=== PATIENT | male | born 1985 | race Caucasian/White ===

== ENCOUNTER 2018-09-27 17:28 | Observation (INO) ==
[2018-09-27] MEDS ORDERED: 0.9 % Sodium Chloride 1,000 ML IVC ONE ×2 (18:34→21:34)
--- NOTE | 2018-09-27 18:36 | Emergency Department Note ---
Disposition Clinical Impression: Tachycardia, Flank pain, Lower extremity weakness, Obstructive uropathy, Dehydration, Kidney stone on right side, Hematuria Disposition: Admitted As Inpatient Referrals: Tom,Susan Ortiz CNP [Primary Care Provider] - Forms: ED Satisfaction Letter, Work/School Release Time of Disposition: 21:52 General Adult HPI - General Chief complaint: ED Abdominal Pain Stated complaint: RUQ Pain Time Seen by Provider: 09/27/18 18:33 Source: patient Limitations: no limitations - History of Present Illness HPI Narrative: 33-year-old male comes in with mother with concerns for right flank and abdominal pain. He has a known history of kidney stones. He has been evaluated outpatient with x-rays which were reportedly negative. He had some blood in his urine so his primary care provider put him on an antibiotic. The patient describes persistent flank and right-sided abdominal pain in the upper aspect. There is no history of trauma or rash. No vomiting or diarrhea. No chest pain or shortness of breath. He has a known history of kidney stones he has been voiding normally. 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 There is no history of cough runny nose ear pain sore throat or headache. No trouble moving the upper extremities no confusion or seizures. The patient has had persistent right flank and abdominal pain with recent hematuria and antibiotic therapy per their history. He has no history of recent abdominal surgery no history of gallbladder disease. Pain Scale: 10 - Related Data Home Medications Medication Instructions Recorded Confirmed Lisinopril [Zestril] 10 mg PO DAILY 09/27/18 09/27/18 Allergies Allergy/AdvReac Type Severity Reaction Status Date / Time No Known Allergies Allergy Verified 09/27/18 17:30 All systems ED: reviewed and negative except as stated. Past Medical History - Past Medical History Medical history: Reports: other Psychiatric history: Reports: no psych history - Social History Smoking Status: Never smoker Smokeless Tobacco Status: No Alcohol use: Reports: none Drug use: Reports: none Physical Exam - General Limitations: no limitations General appearance: alert, in no apparent distress - Head Head exam: atraumatic, normocephalic, normal inspection - Eye Eye exam: Present: normal appearance, PERRL, EOMI - ENT ENT exam: normal exam, normal oropharynx, mucous membranes moist, TM's normal bilaterally, normal external ear exam - Neck Neck exam: Present: normal inspection, full ROM, trachea midline - Chest Chest inspection: Present: symmetric chest wall rise. Absent: tenderness - Respiratory Respiratory exam: Present: normal lung sounds bilaterally. Absent: respiratory distress, prolonged expiratory phase - Cardiovascular Cardiovascular exam: Present: normal rhythm, tachycardia - Abdominal Exam Abdominal exam: Present: soft, Non-Tender, normal bowel sounds. Absent: tender ness, distention, guarding, rebound, rigidity, trauma, Osborne's sign, Rovsing's sign, tenderness at McBurney's Point - Extremities Exam Extremities exam: Present: full ROM, other (Flaccid lower extremities, no evidence of trauma, no cyanosis or edema.). Absent: tenderness, pedal edema - Expanded Lower Extremity Exam Neurovascular/Tendon exam: Present: normal capillary refill. Absent: extremity cold to touch, pallor - Back Exam Back exam: Present: normal inspection, full ROM. Absent: CVA tenderness (R), CVA tenderness (L), vertebral tenderness - Neurological Exam Neurological exam: Present: alert, oriented X3, CN II-XII intact, other (Upper extremities show good muscle strength and sensation. Lower extremities flaccid consistent with stated history of ataxia chronic lower extremity weakness.) - Psychiatric Psychiatric exam: Present: normal affect, normal mood - Skin Skin exam: Present: warm, dry, intact, normal color Course Vital Signs Temperature 99.7 F H 09/27/18 17:30 Pulse Rate 140 09/27/18 17:30 Respiratory Rate 16 09/27/18 17:30 Blood Pressure 128/74 09/27/18 17:30 O2 Sat by Pulse Oximetry 93 09/27/18 17:30 Temperature 98.8 F 09/27/18 20:22 Pulse Rate 105 09/27/18 21:03 Respiratory Rate 15 09/27/18 21:03 Blood Pressure 141/87 09/27/18 21:03 O2 Sat by Pulse Oximetry 98 09/27/18 21:03 Oxygen Delivery Oxygen Delivery Room Air Medical Decision Making - [facility] Narrative Medical decision making narrative: The patient has been evaluated and treated for hematuria outpatient and has had persistent right flank pain for one week. He has been on outpatient antibiotics and had decreased by mouth intake. In the emergency department the patient's initial heart rate was in the 140s. He has an elevated white count and an element of hematuria with an associated 5-6 mm kidney stone on the right/obstructive uropathy with renal colic. IV fluids were given, morphine and Zofran were ordered. Blood cultures were sent. Rocephin given IV. Ketones noted in the urine as well. The patient had a low-grade temp at 99.7, after fluids and pain medications his heart rate went down into the 100 teens range. He has been persistently uncomfortable. Based on the patient's persistent flank pain, obstructive uropathy, abnormal vital signs, elevated white count, and abnormal urinalysis with findings suggestive of dehydration, I consulted with the urologist on-call Dr. Payton who recommends hospital admission via the hospital service with urology consult. The patient and mother are agreeable. I consulted with the hospitalist on-call who has excepted the patient to their care. The patient is currently stable pending admission. He may meet sepsis criteria however his lactic acid level is negative and his blood pressure has been stable blood cultures have been sent. - Lab Data Lab results reviewed: Yes I reviewed the patient's lab results. Result diagrams: 09/27/18 17:53 09/27/18 17:53 Lab Results 09/27/18 09/27/18 09/27/18 Range/Units 17:53 17:53 17:53 WBC 12.8 H (4.3-11.1) K/mcL RBC 5.46 (4.19-5.50) M/mcL Hgb 16.8 (12.9-16.9) g/dL Hct 49.6 (37.5-50.1) % MCV 90.8 (83.0-100.0) fL MCH 30.8 (28.0-33.3) pg MCHC 33.9 (31.6-35.5) g/dL RDW 12.5 (11.5-14.5) % Plt Count 350 (140-400) K/mcL MPV 9.1 L (9.4-12.4) fL Immature Gran % 0.5 (0-4) % Seg Neutrophils % 78.5 % Lymphocytes % 11.4 % Monocytes % 9.2 % Eosinophils % 0.2 % Basophils % 0.2 % Neutrophils # 10.0 H (1.6-8.9) K/mcL Lymphocytes # 1.5 (0.6-4.6) K/mcL Monocytes # 1.2 (0.0-1.3) K/mcL Eosinophils # 0.0 (0.0-0.6) K/mcL Basophils # 0.0 (0.0-0.2) K/mcL Sodium 136 (136-145) mEq/L Potassium 4.0 (3.5-5.1) mEq/L Chloride 100 (98-107) mEq/L Carbon Dioxide 24 (23-29) mEq/L BUN 18 (6-20) mg/dL Creatinine 1.29 (0.70-1.30) mg/dL Est GFR ( Amer) > 60 (> 60) Est GFR (Non-Af Amer) > 60 (> 60) BUN/Creatinine Ratio 14 (6-26) Glucose 129 H (70-105) mg/dL Calculated Osmolality 286 (280-300) Lactic Acid (0.5-2.2) mmol/L Calcium 9.8 (8.6-10.3) mg/dL Total Bilirubin 0.8 (0.3-1.0) mg/dL Direct Bilirubin 0.1 (0.0-0.2) mg/dL Indirect Bilirubin 0.7 (0.0-1.2) mg/dL AST 26 (13-39) Units/L ALT 44 (7-52) Units/L Alkaline Phosphatase 65 (34-104) Units/L Troponin I (< 0.04) ng/mL C-Reactive Protein (Less than 10) mg/L Serum Total Protein 7.7 (6.4-8.9) g/dL Albumin 4.3 (3.5-5.7) g/dL Globulin 3.4 (2.4-3.5) g/dL Albumin/Globulin Ratio 1.3 (1.1-2.2) Lipase 20 (11-82) Units/L Urine Color (Yellow) Urine Clarity (Clear) Urine pH (5.0-8.0) pH Units Ur Specific [place] (1.010-1.025) Urine Protein (Neg-Trace) mg/dL Urine Glucose (UA) (Normal) mg/dL Urine Ketones (Negative) mg/dL Urine Blood (Negative) Urine Nitrite (Negative) Urine Bilirubin (Negative) Urine Urobilinogen (Normal) mg/dL Ur Leukocyte Esterase (Negative) Urine Microscopic RBC (0-3) per hpf Urine Microscopic WBC (0-3) per hpf Ur Squamous Epith Cells (None-Few) per lpf Urine Bacteria (None-Few) per hpf Hyaline Casts (None-Few) per lpf Ur Culture Indicated? (NO) Urine Opiates Screen (Hnlxey=944) ng/mL Ur Buprenorphine Scrn (Cutoff=5) ng/mL Acetaminophen (10-20) mcg/mL Ur Barbiturates Screen (Gieahb=419) ng/mL Ur Phencyclidine Scrn (Cutoff=25) ng/mL Ur Amphetamines Screen (Wtfyno=0705) ng/mL U Benzodiazepines Scrn (Xeanqk=827) ng/mL Urine Cocaine Screen (Cutoff= 300) ng/mL U Marijuana (THC) Screen (Cutoff = 50) ng/mL Ur Drug Screen Interp Hepatitis A IgM Ab Nonreactive (Nonreactive) Hep Bs Antigen Nonreactive (Nonreactive) Hep B Core IgM Ab Nonreactive (Nonreactive) Hepatitis C Ab Screen Nonreactive (Nonreactive) 09/27/18 09/27/18 09/27/18 Range/Units 19:04 19:04 19:04 WBC (4.3-11.1) K/mcL RBC (4.19-5.50) M/mcL Hgb (12.9-16.9) g/dL Hct (37.5-50.1) % MCV (83.0-100.0) fL MCH (28.0-33.3) pg MCHC (31.6-35.5) g/dL RDW (11.5-14.5) % Plt Count (140-400) K/mcL MPV (9.4-12.4) fL Immature Gran % (0-4) % Seg Neutrophils % % Lymphocytes % % Monocytes % % Eosinophils % % Basophils % % Neutrophils # (1.6-8.9) K/mcL Lymphocytes # (0.6-4.6) K/mcL Monocytes # (0.0-1.3) K/mcL Eosinophils # (0.0-0.6) K/mcL Basophils # (0.0-0.2) K/mcL Sodium (136-145) mEq/L Potassium (3.5-5.1) mEq/L Chloride (98-107) mEq/L Carbon Dioxide (23-29) mEq/L BUN (6-20) mg/dL Creatinine (0.70-1.30) mg/dL Est GFR ( Amer) (> 60) Est GFR (Non-Af Amer) (> 60) BUN/Creatinine Ratio (6-26) Glucose (70-105) mg/dL Calculated Osmolality (280-300) Lactic Acid 1.3 (0.5-2.2) mmol/L Calcium (8.6-10.3) mg/dL Total Bilirubin (0.3-1.0) mg/dL Direct Bilirubin (0.0-0.2) mg/dL Indirect Bilirubin (0.0-1.2) mg/dL AST (13-39) Units/L ALT (7-52) Units/L Alkaline Phosphatase (34-104) Units/L Troponin I < 0.03 (< 0.04) ng/mL C-Reactive Protein 41 H (Less than 10) mg/L Serum Total Protein (6.4-8.9) g/dL Albumin (3.5-5.7) g/dL Globulin (2.4-3.5) g/dL Albumin/Globulin Ratio (1.1-2.2) Lipase (11-82) Units/L Urine Color (Yellow) Urine Clarity (Clear) Urine pH (5.0-8.0) pH Units Ur Specific [place] (1.010-1.025) Urine Protein (Neg-Trace) mg/dL Urine Glucose (UA) (Normal) mg/dL Urine Ketones (Negative) mg/dL Urine Blood (Negative) Urine Nitrite (Negative) Urine Bilirubin (Negative) Urine Urobilinogen (Normal) mg/dL Ur Leukocyte Esterase (Negative) Urine Microscopic RBC (0-3) per hpf Urine Microscopic WBC (0-3) per hpf Ur Squamous Epith Cells (None-Few) per lpf Urine Bacteria (None-Few) per hpf Hyaline Casts (None-Few) per lpf Ur Culture Indicated? (NO) Urine Opiates Screen (Msddjj=453) ng/mL Ur Buprenorphine Scrn (Cutoff=5) ng/mL Acetaminophen < 10 L (10-20) mcg/mL Ur Barbiturates Screen (Qqimrb=440) ng/mL Ur Phencyclidine Scrn (Cutoff=25) ng/mL Ur Amphetamines Screen (Iexwgh=2652) ng/mL U Benzodiazepines Scrn (Oxkpls=887) ng/mL Urine Cocaine Screen (Cutoff= 300) ng/mL U Marijuana (THC) Screen (Cutoff = 50) ng/mL Ur Drug Screen Interp Hepatitis A IgM Ab (Nonreactive) Hep Bs Antigen (Nonreactive) Hep B Core IgM Ab (Nonreactive) Hepatitis C Ab Screen (Nonreactive) 09/27/18 09/27/18 Range/Units 19:15 19:15 WBC (4.3-11.1) K/mcL RBC (4.19-5.50) M/mcL Hgb (12.9-16.9) g/dL Hct (37.5-50.1) % MCV (83.0-100.0) fL MCH (28.0-33.3) pg MCHC (31.6-35.5) g/dL RDW (11.5-14.5) % Plt Count (140-400) K/mcL MPV (9.4-12.4) fL Immature Gran % (0-4) % Seg Neutrophils % % Lymphocytes % % Monocytes % % Eosinophils % % Basophils % % Neutrophils # (1.6-8.9) K/mcL Lymphocytes # (0.6-4.6) K/mcL Monocytes # (0.0-1.3) K/mcL Eosinophils # (0.0-0.6) K/mcL Basophils # (0.0-0.2) K/mcL Sodium (136-145) mEq/L Potassium (3.5-5.1) mEq/L Chloride (98-107) mEq/L Carbon Dioxide (23-29) mEq/L BUN (6-20) mg/dL Creatinine (0.70-1.30) mg/dL Est GFR ( Amer) (> 60) Est GFR (Non-Af Amer) (> 60) BUN/Creatinine Ratio (6-26) Glucose (70-105) mg/dL Calculated Osmolality (280-300) Lactic Acid (0.5-2.2) mmol/L Calcium (8.6-10.3) mg/dL Total Bilirubin (0.3-1.0) mg/dL Direct Bilirubin (0.0-0.2) mg/dL Indirect Bilirubin (0.0-1.2) mg/dL AST (13-39) Units/L ALT (7-52) Units/L Alkaline Phosphatase (34-104) Units/L Troponin I (< 0.04) ng/mL C-Reactive Protein (Less than 10) mg/L Serum Total Protein (6.4-8.9) g/dL Albumin (3.5-5.7) g/dL Globulin (2.4-3.5) g/dL Albumin/Globulin Ratio (1.1-2.2) Lipase (11-82) Units/L Urine Color Yellow (Yellow) Urine Clarity Clear (Clear) Urine pH 5.5 (5.0-8.0) pH Units Ur Specific [place] 1.024 (1.010-1.025) Urine Protein Trace (Neg-Trace) mg/dL Urine Glucose (UA) Normal (Normal) mg/dL Urine Ketones 40 H (Negative) mg/dL Urine Blood Large H (Negative) Urine Nitrite Negative (Negative) Urine Bilirubin Negative (Negative) Urine Urobilinogen Normal (Normal) mg/dL Ur Leukocyte Esterase Trace H (Negative) Urine Microscopic RBC 5-15 H (0-3) per hpf Urine Microscopic WBC 3-5 H (0-3) per hpf Ur Squamous Epith Cells Many H (None-Few) per lpf Urine Bacteria Few (None-Few) per hpf Hyaline Casts None Seen (None-Few) per lpf Ur Culture Indicated? YES A (NO) Urine Opiates Screen Negative (Segirn=886) ng/mL Ur Buprenorphine Scrn Negative (Cutoff=5) ng/mL Acetaminophen (10-20) mcg/mL Ur Barbiturates Screen Negative (Qdpbia=296) ng/mL Ur Phencyclidine Scrn Negative (Cutoff=25) ng/mL Ur Amphetamines Screen Negative (Kktkyc=3652) ng/mL U Benzodiazepines Scrn Negative (Dkjmqu=648) ng/mL Urine Cocaine Screen Negative (Cutoff= 300) ng/mL U Marijuana (THC) Screen Negative (Cutoff = 50) ng/mL Ur Drug Screen Interp See Below Hepatitis A IgM Ab (Nonreactive) Hep Bs Antigen (Nonreactive) Hep B Core IgM Ab (Nonreactive) Hepatitis C Ab Screen (Nonreactive) - Radiology Data Radiology results reviewed: Yes I reviewed the patient's radiology results.
[2018-09-27 18:37] LABS: Basophils % 0.2 %; Eosinophils % 0.2 %; Hematocrit 49.6 % (37.5-50.1); Hemoglobin 16.8 g/dL (12.9-16.9); Immature Granulocytes % 0.5 % (0-4); Lymphocytes # 1.5 K/mcL (0.6-4.6); Lymphocytes % 11.4 %; Mean Corpuscular HGB Conc 33.9 g/dL (31.6-35.5); Mean Corpuscular Hemoglobin 30.8 pg (28.0-33.3); Mean Corpuscular Volume 90.8 fL (83.0-100.0); Mean Platelet Volume 9.1 fL (9.4-12.4); Monocytes # 1.2 K/mcL (0.0-1.3); Monocytes % 9.2 %; Platelet Count 350 K/mcL (140-400); Red Blood Count 5.46 M/mcL (4.19-5.50); Red Cell Distribution Width 12.5 % (11.5-14.5); Segmented Neutrophils % 78.5 %; White Blood Count 12.8 K/mcL (4.3-11.1)
[2018-09-27 18:49] LABS: Alanine Aminotransferase 44 Units/L (7-52); Albumin 4.3 g/dL (3.5-5.7); Albumin/Globulin Ratio 1.3 (1.1-2.2); Alkaline Phosphatase 65 Units/L (34-104); Aspartate Amino Transferase 26 Units/L (13-39); BUN/Creatinine Ratio 14 (6-26); Bilirubin,Direct 0.1 mg/dL (0.0-0.2); Bilirubin,Indirect 0.7 mg/dL (0.0-1.2); Bilirubin,Total 0.8 mg/dL (0.3-1.0); Blood Urea Nitrogen 18 mg/dL (6-20); Calcium 9.8 mg/dL (8.6-10.3); Carbon Dioxide 24 mEq/L (23-29); Chloride 100 mEq/L (98-107); Globulin 3.4 g/dL (2.4-3.5); Glucose 129 mg/dL (70-105); Lipase 20 Units/L (11-82); Osmolality,Calculated 286 (280-300); Sodium 136 mEq/L (136-145); Total Protein 7.7 g/dL (6.4-8.9); eGFR For African Americans > 60 (> 60); eGFR For Non-African Americans > 60 (> 60)
[2018-09-27 19:39] LABS: Bilirubin,Urine Negative (Negative); Blood,Urine Large (Negative); Clarity,Urine Clear (Clear); Color,Urine Yellow (Yellow); Glucose,Urine (UA) Normal (Normal); Ketones,Urine 40 mg/dL (Negative); Leukocyte Esterase,Urine Trace (Negative); Nitrite,Urine Negative (Negative); PH,Urine 5.5 pH Units (5.0-8.0); Protein,Urine Trace mg/dL (Neg-Trace); Specific Gravity,Urine 1.024 (1.010-1.025); Urobilinogen,Urine Normal (Normal)
[2018-09-27 19:43] LABS: Acetaminophen < 10 mcg/mL (10-20); Troponin I < 0.03 ng/mL (< 0.04)
[2018-09-27 19:44] LABS: Hyaline Casts,Urine None Seen per lpf (None-Few); Squamous Epithelial Cell,Urine Many per lpf (None-Few)
[2018-09-27 19:45] LABS: Amphetamine Screen,Urine Negative ng/mL (Cutoff=1000); Barbiturate Screen,Urine Negative ng/mL (Cutoff=200); Benzodiazepines Screen,Urine Negative ng/mL (Cutoff=200); Cannabinoid Screen,Urine Negative ng/mL (Cutoff = 50); Cocaine Screen,Urine Negative ng/mL (Cutoff= 300); Opiate Screen,Urine Negative ng/mL (Cutoff=300); Phencyclidine Screen,Urine Negative ng/mL (Cutoff=25)
[2018-09-27] MEDS ORDERED: Morphine Sulfate 2 MG/ML SYRINGE IVP ONE (19:46)
[2018-09-27] MEDS ORDERED: Isovue-370 500 ML BOTTLE IVP ONE (19:46)
[2018-09-27] MEDS ORDERED: Ondansetron 4 MG/2 ML VIAL IVP ONE (19:47)
[2018-09-27 19:52] LABS: Bacteria,Urine Few per hpf (None-Few)
[2018-09-27 20:43] LABS: Hepatitis B Surface Antigen Nonreactive (Nonreactive)
[2018-09-27 21:12] LABS: Hepatitis B Core IgM Nonreactive (Nonreactive); Hepatitis C Virus Antibody Nonreactive (Nonreactive)
[2018-09-27 21:14] LABS: Hepatitis A Antibody IgM Nonreactive (Nonreactive)
[2018-09-27] MEDS ORDERED: cefTRIAXone 1,000 MG in Water for inj. (sterile) 10 ML IVP ONE (21:33)
[2018-09-27] MEDS ORDERED: *HR* HYDROmorphone (PF) 1 MG/ML SYRINGE IVP ONE (22:24)
[2018-09-28] MEDS ORDERED: Naloxone 0.4 MG/ML INJ IVP PRN (00:22)
[2018-09-28] MEDS ORDERED: Ketorolac 30 MG/ML VIAL IVP PRN (00:22)
[2018-09-28] MEDS ORDERED: Ondansetron 4 MG/2 ML VIAL IVP PRN (00:22)
--- NOTE | 2018-09-28 00:29 | Internal Med History&Physical ---
Date of Encounter: 09/28/18 Time of Encounter: 00:05 Internal Medicine - H&P: HPI Chief complaint: Kidney stone Admitted From: Emergency Dept Plans for Post Hospital Care: Home History of present illness: Mr. Smiley is a 33 year old male Patient presented to the emergency department with right flank pain. He has a history of kidney stones, and describes the pain as burning. He has had similar pain like this in the past, with other stones his mother is at bedside and states that he passed a kidney stone about 2 years ago.He had been seen by his primary care provider, antibiotic. The pain did not improve and he came to the emergency department for further evaluation. Emergency department patient's initial vital signs: Temperature 99.7 heart rate 140, respiratory rate 16, blood pressure 128/74, O2 saturation 93%. CBC notable for white count of 12.8 BMP notable for a glucose of 129. C-reactive protein elevated at 41 Lactic acid 1.3 Initial troponin undetectable Urinalysis: Large blood, urine ketones, trace protein, trace leukocyte esterase, 3-5 white blood cells, culture indicated. Urine tox screen negative Hepatitis panel nonreactive Emergency department patient received 2 L of IV fluids, and on-call urology was notified. Patient will see the patient in the morning. Blood cultures were drawn and patient was started on ceftriaxone as well. Upon my evaluation, patient is resting comfortably in the hospital bed in no acute distress. He denies chest pain, abdominal pain, nausea, vomiting, diarrhea and constipation. He has a history of kidney stones, hypertension and has mild developmental delay. He has lower extremity weakness, and uses a wheelchair for mobility. His mother states that there is a strong family history of diabetes in the family. He is a full code. 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 - Constitutional Vitals: Temp Pulse Resp BP Pulse Ox 98.4 F 102 15 122/78 96 09/27/18 23:59 09/27/18 23:59 09/27/18 23:59 09/27/18 23:59 09/27/18 23:59 General appearance: Present: cooperative, A&O X 3, pleasant, no acute distress, answers questions appropriately Exam: - - Head Head exam: Present: normal inspection - Eye Eye exam: Present: EOMI, normal appearance - Respiratory Respiratory exam: Present: CTAB. Absent: rales, respiratory distress, rhonchi, wheezes - Cardiovascular Cardiovascular exam: Present: RRR. Absent: diastolic murmur, systolic murmur - GI/Abdominal GI/Abdominal exam: Present: normal bowel sounds, soft. Absent: tenderness Additional comments: No right flank pain with palpation - Extremities Exam Extremities exam: Present: warm, radial pulses palpable and symmetrical. Absent: calf tenderness, pedal edema, tenderness Additional comments: Unable to move lower extremities - Back Exam Back exam: Absent: CVA tenderness (L), CVA tenderness (R) - Neurological Exam Neurological exam: Present: strengths equal and symetr throughout. Absent: facial droop, speech deficit - Skin Skin exam: Present: dry, normal color, warm Internal Med - H&P Results - Labs CBC & Chem 7: 09/27/18 17:53 09/27/18 17:53 Labs: Short CBC 09/27/18 Range/Units 17:53 WBC 12.8 H (4.3-11.1) K/mcL Hgb 16.8 (12.9-16.9) g/dL Hct 49.6 (37.5-50.1) % Plt Count 350 (140-400) K/mcL Neutrophils # 10.0 H (1.6-8.9) K/mcL BMP 09/27/18 17:53 Sodium 136 Potassium 4.0 Chloride 100 Carbon Dioxide 24 BUN 18 Creatinine 1.29 Glucose 129 H Calcium 9.8 Cardiac Enzymes 09/27/18 Range/Units 19:04 Troponin I < 0.03 (< 0.04) ng/mL Liver Function 09/27/18 Range/Units 17:53 Total Bilirubin 0.8 (0.3-1.0) mg/dL Direct Bilirubin 0.1 (0.0-0.2) mg/dL AST 26 (13-39) Units/L ALT 44 (7-52) Units/L Alkaline Phosphatase 65 (34-104) Units/L Albumin 4.3 (3.5-5.7) g/dL Urine 09/27/18 Range/Units 19:15 Urine Color Yellow (Yellow) Urine Clarity Clear (Clear) Urine pH 5.5 (5.0-8.0) pH Units Ur Specific [place] 1.024 (1.010-1.025) Urine Protein Trace (Neg-Trace) mg/dL Urine Glucose (UA) Normal (Normal) mg/dL - Impressions ITS Impressions Chest X-Ray 09/27/18 19:45 IMPRESSION: Expiratory film demonstrating no definite infiltrate D/ / Anthony Han MD / Anthony Han MD Interpreting Provider: Anthony Han MD Abdomen/Pelvis CT 09/27/18 19:46 IMPRESSION: Right hydronephrosis with obstructing 5-6 mm stone at or just near the right ureteropelvic junction. Fatty infiltration of the liver D/ / Jayna Perera Cha, MD / Jayna Perera Cha, MD Interpreting Provider: Jayna Perera Cha, MD - Assessment and Plan (1) Kidney stone on right side Current Visit: Yes Status: Acute Assessment and plan: Patient has a 5-6 mm obstructing stone just near the right ureteropelvic javier ction. Correlates with his right flank pain. Urology notified will see the patient in the morning. He was given ceftriaxone for possible infection as well. Blood cultures were drawn. Follow-up urology recommendations Continue pain management as needed Nothing by mouth after midnight Continue IV fluid hydration Follow-up blood cultures Continue IV ceftriaxone (2) Flank pain Current Visit: Yes Status: Acute Assessment and plan: Now resolved after pain medicine. Pain management as needed (3) Hyperglycemia Current Visit: Yes Status: Acute Assessment and plan: Patient's mother denies that the patient has history of diabetes. He has had elevated blood sugars in the past. A1c in the morning (4) DVT prophylaxis Current Visit: Yes Status: Acute Assessment and plan: SCDs - Time Spent With Patient Total time spent is greater than 50% in coordination of care (as documented) at patient's floor/unit and/or counseling patient:
[2018-09-28] MEDS: 0.9 % Sodium Chloride 1,000 ML IVC SCH ×2 (01:04→09:23)
[2018-09-28 06:31] LABS: Hematocrit 42.5 % (37.5-50.1); Mean Corpuscular HGB Conc 33.2 g/dL (31.6-35.5); Mean Corpuscular Hemoglobin 30.3 pg (28.0-33.3); Mean Corpuscular Volume 91.2 fL (83.0-100.0); Mean Platelet Volume 9.1 fL (9.4-12.4); Platelet Count 287 K/mcL (140-400); Red Blood Count 4.66 M/mcL (4.19-5.50); Red Cell Distribution Width 12.9 % (11.5-14.5); White Blood Count 8.7 K/mcL (4.3-11.1)
[2018-09-28 06:36] LABS: INR 1.3; Prothrombin Time 14.7 Seconds (9.4-12.1)
[2018-09-28 06:47] LABS: Hemoglobin 14.1 g/dL (12.9-16.9)
[2018-09-28 06:54] LABS: BUN/Creatinine Ratio 13 (6-26); Blood Urea Nitrogen 13 mg/dL (6-20); Calcium 8.7 mg/dL (8.6-10.3); Carbon Dioxide 24 mEq/L (23-29); Chloride 107 mEq/L (98-107); Glucose 110 mg/dL (70-105); Osmolality,Calculated 293 (280-300); Potassium 3.8 mEq/L (3.5-5.1); Sodium 141 mEq/L (136-145); eGFR For African Americans > 60 (> 60); eGFR For Non-African Americans > 60 (> 60)
[2018-09-28 07:16] LABS: Estimated Average Glucose 117 mg/dl
--- NOTE | 2018-09-28 08:34 | Electrocardiograph Report ---
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
--- NOTE | 2018-09-28 08:51 | Urology - Consult Note ---
<Sunita Singh N - Last Filed: 09/28/18 08:48> Date of Encounter: 09/28/18 Time of Encounter: 08:00 - Assessment and Plan (1) Ureteral stone with hydronephrosis Current Visit: Yes Status: Acute Assessment and plan: Patient is a 33-year-old male who presents with a right proximal ureteral stone and hydronephrosis. I discussed surgical risks and benefits with patient and his mother who both verbalized understanding. Patient's mother signed consent, and he is prepared undergo a cystoscopy and right ureteral stent placement later this afternoon with Dr. Payton. Patient will remain nothing by mouth. (2) Urinary tract infection Current Visit: Yes Status: Acute Assessment and plan: Patient is a 33-year-old male who presents with a presumed urinary tract infection secondary to obstructive uropathy. Patient with a documented low- grade fever and tachycardia. Patient is receiving IV Rocephin. Blood and urine cultures are pending. Qualifiers: Urinary tract infection type: site unspecified Hematuria presence: with hematuria Qualified Code(s): N39.0 - Urinary tract infection, site not specified; R31.9 - Hematuria, unspecified Urology CN:HPI Consult date: 09/28/18 Reason for consult Urology: Hydronephrosis (right ureteral stone, UTI) Requesting physician: Rayshawn Sexton History of present illness: Patient is a 33-year-old male who presents with a 5 mm right proximal ureteral stone and hydronephrosis. Patient has a past medical history significant for nephrolithiasis, developmental delay and unspecified immunodeficiency syndrome. Patient is accompanied by his mother at bedside who is a reliable historian. Patient presented to the emergency department with a one-week history of right flank pain, nausea and upper abdominal pain. Patient was initially evaluated by his primary care provider who ordered a KUB and initiated antibiotics. Patient's mother reports KUB was negative. Patient underwent a CT of the abdomen and pelvis at the emergency department revealing a 5-6 mm right ureter opelvic junction calculus and hydronephrosis. On initial evaluation, the patient was found to be tachycardic with a heart rate in the 140s and temperature to 99.7. Patient was admitted for further urologic intervention. Patient has a long-standing history of nephrolithiasis and has undergone ESWL in the past. Patient has a strong family history of renal stones through his mother, sister and maternal grandmother. Currently, patient is sitting upright in bed in no apparent distress and he denies any chest pain, dyspnea, nausea, vomiting, fever,or chills. 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 Psychiatric history: no psych history - Past Surgical History Additional surgical history: metal bars in hips - Social History Smoking Status: Never smoker Smokeless Tobacco Status: No Alcohol use: none Drug use: none - Family History Mother Sister Grandmother Hx Family Genitourinary Disorders: Yes (renal stones ) Medications and Allergies Lisinopril [Zestril] 10 mg PO DAILY 09/27/18 [History] Allergy/AdvReac Type Severity Reaction Status Date / Time No Known Allergies Allergy Verified 09/27/18 17:30 Review of Systems - Constitutional fatigue, no chills, no fever(s) - EENT Nose, mouth and throat: no dizziness, no headache(s) - Cardiovascular no chest pain, no diaphoresis, no dyspnea - Respiratory no cough, no dyspnea - Gastrointestinal abdominal pain, nausea, no vomiting - Genitourinary flank pain, hematuria, no difficulty urinating, no dysuria, no urinary frequency, no urinary hesitancy, no urinary incontinence, no urinary urgency - Musculoskeletal back pain, no muscle weakness - Integumentary no erythema, no rash - Neurological no confusion, no syncope - Psychiatric no anxiety, no confusion - Hematologic/Lymphatic no easy bleeding, no easy bruising - Allergic/Immunologic no throat swelling, no wheezing Exam Initial Vital Signs Temp Pulse Resp BP Pulse Ox 99.7 F H 140 16 128/74 93 09/27/18 17:30 09/27/18 17:30 09/27/18 17:30 09/27/18 17:30 09/27/18 17:30 - General physical appearance Present: no distress, no pain - Eyes Present: PERRL, normal ocular movement - ENT Present: normal nares, no hearing loss, no congestion - Neck Present: no masses, trachea midline, no lymphadenopathy - Respiratory Present: normal respiratory effort - Cardiovascular Cardiovascular exam IM: tachycardia - Abdomen Abdomen: Present: soft, non tender. Absent: distended - Genitourinary other (no cvat) - Integumentary Present: no rash, no abnormal pigmentation - Neurologic Present: normal coordination - Musculoskeletal Present: other (bilateral contracted lower extremities ) Urology Results - Labs 09/28/18 05:39 09/28/18 05:39 Abnormal lab results WBC 12.8 K/mcL (4.3-11.1) H 09/27/18 17:53 MPV 9.1 fL (9.4-12.4) L 09/28/18 05:39 Neutrophils # 10.0 K/mcL (1.6-8.9) H 09/27/18 17:53 PT 14.7 Seconds (9.4-12.1) H 09/28/18 05:39 Glucose 110 mg/dL (70-105) H 09/28/18 05:39 Hemoglobin A1c 5.7 % (-5.6) H 09/28/18 05:39 C-Reactive Protein 41 mg/L (Less than 10) H 09/27/18 19:04 Urine Ketones 40 mg/dL (Negative) H 09/27/18 19:15 Urine Blood Large (Negative) H 09/27/18 19:15 Ur Leukocyte Esterase Trace (Negative) H 09/27/18 19:15 Urine Microscopic RBC 5-15 per hpf (0-3) H 09/27/18 19:15 Urine Microscopic WBC 3-5 per hpf (0-3) H 09/27/18 19:15 Ur Squamous Epith Cells Many per lpf (None-Few) H 09/27/18 19:15 Ur Culture Indicated? YES (NO) A 09/27/18 19:15 Acetaminophen < 10 mcg/mL (10-20) L 09/27/18 19:04 Diabetes panel 09/27/18 09/28/18 09/28/18 Range/Units 17:53 05:39 05:39 Sodium 136 141 (136-145) mEq/L Potassium 4.0 3.8 (3.5-5.1) mEq/L Chloride 100 107 (98-107) mEq/L Carbon Dioxide 24 24 (23-29) mEq/L BUN 18 13 (6-20) mg/dL Creatinine 1.29 1.03 (0.70-1.30) mg/dL Glucose 129 H 110 H (70-105) mg/dL Hemoglobin A1c 5.7 H ( - 5.6) % Calcium 9.8 8.7 (8.6-10.3) mg/dL AST 26 (13-39) Units/L ALT 44 (7-52) Units/L Alkaline Phosphatase 65 (34-104) Units/L Albumin 4.3 (3.5-5.7) g/dL Calcium panel 09/27/18 09/28/18 Range/Units 17:53 05:39 Calcium 9.8 8.7 (8.6-10.3) mg/dL Albumin 4.3 (3.5-5.7) g/dL Pituitary panel 09/27/18 09/28/18 Range/Units 17:53 05:39 Sodium 136 141 (136-145) mEq/L Potassium 4.0 3.8 (3.5-5.1) mEq/L Chloride 100 107 (98-107) mEq/L Carbon Dioxide 24 24 (23-29) mEq/L BUN 18 13 (6-20) mg/dL Creatinine 1.29 1.03 (0.70-1.30) mg/dL Glucose 129 H 110 H (70-105) mg/dL Calcium 9.8 8.7 (8.6-10.3) mg/dL Adrenal panel 09/27/18 09/28/18 Range/Units 17:53 05:39 Sodium 136 141 (136-145) mEq/L Potassium 4.0 3.8 (3.5-5.1) mEq/L Chloride 100 107 (98-107) mEq/L Carbon Dioxide 24 24 (23-29) mEq/L BUN 18 13 (6-20) mg/dL Creatinine 1.29 1.03 (0.70-1.30) mg/dL Glucose 129 H 110 H (70-105) mg/dL Calcium 9.8 8.7 (8.6-10.3) mg/dL Total Bilirubin 0.8 (0.3-1.0) mg/dL AST 26 (13-39) Units/L ALT 44 (7-52) Units/L Alkaline Phosphatase 65 (34-104) Units/L Albumin 4.3 (3.5-5.7) g/dL All other labs normal. - Imaging CT scan - abdomen: report reviewed, image reviewed CT scan - pelvis: report reviewed, image reviewed Consult Discharge Plan - Plan Referrals: Demetris Payton MD [Partnered Physician] - Susan Santos CNP [Primary Care Provider] - <Dmeetris Payton - Last Filed: 09/28/18 11:35> Date of Encounter: 09/28/18 Past Med Surg Social Fam HX - Social History Current living situation: With Family (Lives with mother) Exam Initial Vital Signs Temp Pulse Resp BP Pulse Ox 99.7 F H 140 16 128/74 93 09/27/18 17:30 09/27/18 17:30 09/27/18 17:30 09/27/18 17:30 09/27/18 17:30 Urology Results - Labs 09/28/18 05:39 09/28/18 05:39 Abnormal lab results WBC 12.8 K/mcL (4.3-11.1) H 09/27/18 17:53 MPV 9.1 fL (9.4-12.4) L 09/28/18 05:39 Neutrophils # 10.0 K/mcL (1.6-8.9) H 09/27/18 17:53 PT 14.7 Seconds (9.4-12.1) H 09/28/18 05:39 Glucose 110 mg/dL (70-105) H 09/28/18 05:39 Hemoglobin A1c 5.7 % (-5.6) H 09/28/18 05:39 C-Reactive Protein 41 mg/L (Less than 10) H 09/27/18 19:04 Urine Ketones 40 mg/dL (Negative) H 09/27/18 19:15 Urine Blood Large (Negative) H 09/27/18 19:15 Ur Leukocyte Esterase Trace (Negative) H 09/27/18 19:15 Urine Microscopic RBC 5-15 per hpf (0-3) H 09/27/18 19:15 Urine Microscopic WBC 3-5 per hpf (0-3) H 09/27/18 19:15 Ur Squamous Epith Cells Many per lpf (None-Few) H 09/27/18 19:15 Ur Culture Indicated? YES (NO) A 09/27/18 19:15 Acetaminophen < 10 mcg/mL (10-20) L 09/27/18 19:04 Diabetes panel 09/27/18 09/28/18 09/28/18 Range/Units 17:53 05:39 05:39 Sodium 136 141 (136-145) mEq/L Potassium 4.0 3.8 (3.5-5.1) mEq/L Chloride 100 107 (98-107) mEq/L Carbon Dioxide 24 24 (23-29) mEq/L BUN 18 13 (6-20) mg/dL Creatinine 1.29 1.03 (0.70-1.30) mg/dL Glucose 129 H 110 H (70-105) mg/dL Hemoglobin A1c 5.7 H ( - 5.6) % Calcium 9.8 8.7 (8.6-10.3) mg/dL AST 26 (13-39) Units/L ALT 44 (7-52) Units/L Alkaline Phosphatase 65 (34-104) Units/L Albumin 4.3 (3.5-5.7) g/dL Calcium panel 09/27/18 09/28/18 Range/Units 17:53 05:39 Calcium 9.8 8.7 (8.6-10.3) mg/dL Albumin 4.3 (3.5-5.7) g/dL Pituitary panel 09/27/18 09/28/18 Range/Units 17:53 05:39 Sodium 136 141 (136-145) mEq/L Potassium 4.0 3.8 (3.5-5.1) mEq/L Chloride 100 107 (98-107) mEq/L Carbon Dioxide 24 24 (23-29) mEq/L BUN 18 13 (6-20) mg/dL Creatinine 1.29 1.03 (0.70-1.30) mg/dL Glucose 129 H 110 H (70-105) mg/dL Calcium 9.8 8.7 (8.6-10.3) mg/dL Adrenal panel 09/27/18 09/28/18 Range/Units 17:53 05:39 Sodium 136 141 (136-145) mEq/L Potassium 4.0 3.8 (3.5-5.1) mEq/L Chloride 100 107 (98-107) mEq/L Carbon Dioxide 24 24 (23-29) mEq/L BUN 18 13 (6-20) mg/dL Creatinine 1.29 1.03 (0.70-1.30) mg/dL Glucose 129 H 110 H (70-105) mg/dL Calcium 9.8 8.7 (8.6-10.3) mg/dL Total Bilirubin 0.8 (0.3-1.0) mg/dL AST 26 (13-39) Units/L ALT 44 (7-52) Units/L Alkaline Phosphatase 65 (34-104) Units/L Albumin 4.3 (3.5-5.7) g/dL All other labs normal.
[2018-09-28] MEDS ORDERED: cefTRIAXone 1,000 MG in Water for inj. (sterile) 10 ML IVP SCH (09:00)
--- NOTE | 2018-09-28 09:31 | Internal Med Progress Note ---
<Morgan Quezada L - Last Filed: 09/28/18 15:54> Hospitalist Progress Note - Encounter Date of Encounter: 09/28/18 Time of Encounter: 09:29 - Subjective Interval History: Pt seen and examined. Feeling well this morning. Denies any abdominal or flank pain. Pt had already discussed treatment plan with urologist. Will undergo right-sided cystoscopy and ureteral stent placement today. Denies fevers, chills, AVILES, chest pain, SOB, constipation, diarhea, or hematuria. - Exam Vitals: Temp Pulse Resp BP Pulse Ox 98.6 F 103 16 109/74 96 09/28/18 06:18 09/28/18 06:18 09/28/18 06:18 09/28/18 06:18 09/28/18 06:18 Exam: Gen: Vitals noted. No acute distress. Eyes: anicteric sclerae, moist conjunctivae; no lid-lag; Pupils equal and reactive to light HENT: Atraumatic, normocephalic; oropharynx clear with moist mucous membranes and no mucosal ulcerations Neck: Trachea midline; supple, no thyromegaly or lymphadenopathy Cardiac: RRR, no murmurs, rubs or gallops, S1/S2 Pulmonary: CTA bilaterally, no wheezes, rales or rhonchi, equal chest expansion Abdomen: soft, nontender, no rigidity or guarding. No masses or hepatos plenomegaly MSK: ROM intact, no joint swelling noted Extremities: no BLE edema, nontender calf, no cyanosis or clubbing Skin: Normal temperature, turgor and texture; no rash, ulcers or subcutaneous nodules Neuro: Unable to move legs, fasciculations noted in R foot Psych: Appropriate mood and behavior. A&Ox3, moderate mental retardation - Assessment and Plan (1) Ureteral stone with hydronephrosis Current Visit: Yes Status: Acute Assessment and Plan: R proximal Ureteral stone, with hydronephrosis -CT abdomen: 5-6 mm stone in R ureteral pelvic junction -Hx of nephrolithiasis -Urology consulted Plan: -Cystoscopy and right ureteral stent placement today -NPO -Toradol 30 IV q6 for pain (2) Urinary tract infection Current Visit: Yes Status: Acute Assessment and Plan: Secondary to obstructive uropathy -Low grade fever and tachycardia on admission -Blood and urine cultures pending -UA: trace blood, Leuk esterase, WBCs Plan: -IV rocephin day 1 of 7 (3) Kidney stone on right side Current Visit: Yes Status: Acute Assessment and Plan: Visualized on CT Will undergo cystoscopy, basket removal, and stent placement today (4) Hyperglycemia Current Visit: Yes Status: Acute Assessment and Plan: Patient's mother denies that the patient has history of diabetes. He has had elevated blood sugars in the past. A1c: 5.7 Plan: cont to monitor glucose with BMP in the morning DVT Prophylaxis: SCDs - Time Spent with Patient Total time spent is greater than 50% in coordination of care (as documented) at patient's floor/unit and/or counseling patient: Internal Medicine: Result - Labs CBC & Chem 7: 09/28/18 05:39 09/28/18 05:39 Labs: Short CBC 09/27/18 09/28/18 Range/Units 17:53 05:39 WBC 12.8 H 8.7 (4.3-11.1) K/mcL Hgb 16.8 14.1 D (12.9-16.9) g/dL Hct 49.6 42.5 (37.5-50.1) % Plt Count 350 287 (140-400) K/mcL Neutrophils # 10.0 H (1.6-8.9) K/mcL BMP 09/27/18 09/28/18 17:53 05:39 Sodium 136 141 Potassium 4.0 3.8 Chloride 100 107 Carbon Dioxide 24 24 BUN 18 13 Creatinine 1.29 1.03 Glucose 129 H 110 H Calcium 9.8 8.7 Cardiac Enzymes 09/27/18 Range/Units 19:04 Troponin I < 0.03 (< 0.04) ng/mL Liver Function 09/27/18 Range/Units 17:53 Total Bilirubin 0.8 (0.3-1.0) mg/dL Direct Bilirubin 0.1 (0.0-0.2) mg/dL AST 26 (13-39) Units/L ALT 44 (7-52) Units/L Alkaline Phosphatase 65 (34-104) Units/L Albumin 4.3 (3.5-5.7) g/dL Urine 09/27/18 Range/Units 19:15 Urine Color Yellow (Yellow) Urine Clarity Clear (Clear) Urine pH 5.5 (5.0-8.0) pH Units Ur Specific [place] 1.024 (1.010-1.025) Urine Protein Trace (Neg-Trace) mg/dL Urine Glucose (UA) Normal (Normal) mg/dL - ABG Interpretation ABG results: PT/INR, D-dimer PT 14.7 Seconds (9.4-12.1) H 09/28/18 05:39 - Impressions Impressions Chest X-Ray 09/27/18 19:45 IMPRESSION: Expiratory film demonstrating no definite infiltrate D/ / Anthony Han MD / Anthony Han MD Interpreting Provider: Anthony Han MD Abdomen/Pelvis CT 09/27/18 19:46 IMPRESSION: Right hydronephrosis with obstructing 5-6 mm stone at or just near the right ureteropelvic junction. Fatty infiltration of the liver D/ / Jayna Perera Cha, MD / Jayna Perera Cha, MD Interpreting Provider: Jayna Perera Cha, MD Consult Discharge Plan - Plan Referrals: Demetris Payton MD [Partnered Physician] - Susan Santos CNP [Primary Care Provider] - <Richard Bautista - Last Filed: 09/28/18 18:12> Hospitalist Progress Note - Encounter Date of Encounter: 09/28/18 - Exam Vitals: Temp Pulse Resp BP Pulse Ox 98.7 F 92 14 123/81 97 09/28/18 16:07 09/28/18 16:07 09/28/18 16:07 09/28/18 16:07 09/28/18 16:07 - Assessment and Plan (1) Flank pain Current Visit: Yes Status: Acute (2) Kidney stone on right side Current Visit: Yes Status: Acute (3) DVT prophylaxis Current Visit: Yes Status: Acute (4) Hyperglycemia Current Visit: Yes Status: Acute - Time Spent with Patient Total time spent is greater than 50% in coordination of care (as documented) at patient's floor/unit and/or counseling patient: Internal Medicine: Result - Labs CBC & Chem 7: 09/28/18 05:39 09/28/18 05:39 Labs: Short CBC 09/27/18 09/28/18 Range/Units 17:53 05:39 WBC 12.8 H 8.7 (4.3-11.1) K/mcL Hgb 16.8 14.1 D (12.9-16.9) g/dL Hct 49.6 42.5 (37.5-50.1) % Plt Count 350 287 (140-400) K/mcL Neutrophils # 10.0 H (1.6-8.9) K/mcL BMP 09/27/18 09/28/18 17:53 05:39 Sodium 136 141 Potassium 4.0 3.8 Chloride 100 107 Carbon Dioxide 24 24 BUN 18 13 Creatinine 1.29 1.03 Glucose 129 H 110 H Calcium 9.8 8.7 Cardiac Enzymes 09/27/18 Range/Units 19:04 Troponin I < 0.03 (< 0.04) ng/mL Liver Function 09/27/18 Range/Units 17:53 Total Bilirubin 0.8 (0.3-1.0) mg/dL Direct Bilirubin 0.1 (0.0-0.2) mg/dL AST 26 (13-39) Units/L ALT 44 (7-52) Units/L Alkaline Phosphatase 65 (34-104) Units/L Albumin 4.3 (3.5-5.7) g/dL Urine 09/27/18 Range/Units 19:15 Urine Color Yellow (Yellow) Urine Clarity Clear (Clear) Urine pH 5.5 (5.0-8.0) pH Units Ur Specific [place] 1.024 (1.010-1.025) Urine Protein Trace (Neg-Trace) mg/dL Urine Glucose (UA) Normal (Normal) mg/dL - ABG Interpretation ABG results: PT/INR, D-dimer PT 14.7 Seconds (9.4-12.1) H 09/28/18 05:39 - Impressions Impressions Chest X-Ray 09/27/18 19:45 IMPRESSION: Expiratory film demonstrating no definite infiltrate D/ / Anthony Han MD / Anthony Han MD Interpreting Provider: Anthony Han MD Abdomen/Pelvis CT 09/27/18 19:46 IMPRESSION: Right hydronephrosis with obstructing 5-6 mm stone at or just near the right ureteropelvic junction. Fatty infiltration of the liver D/ / Jayna Perera Cha, MD / Jayna Perera Cha, MD Interpreting Provider: Jayna Perera Cha, MD - Attending Attestation I have seen and independently assessed this patient and I agree with plan as documented Plan Ureteral stone with hydronephrosis. Urology on board and plan for cystoscopy and stent placement UTI. continue IV ceftriaxone <Morgan Quezada - Last Filed: 09/28/18 15:54> (2) Urinary tract infection Qualifiers: Urinary tract infection type: site unspecified Hematuria presence: with hematuria Qualified Code(s): N39.0 - Urinary tract infection, site not specified; R31.9 - Hematuria, unspecified
[2018-09-28] MEDS ORDERED: Isovue-300 50 ML VIAL ONE (17:41)
--- NOTE | 2018-09-28 17:44 | Anesthesia Evaluation PreOp ---
Date of Encounter: 09/28/18 Time of Encounter: 17:45 - Past History Planned Operation: Rt Cystoscopy Stent Cardiac History: HTN Pulmonary History: Denies Any Significant HX [employer] History: Other (Uses Wheelchair, has no LE function) Other Medical History: Denies Any Significant HX Anesthesia History: No Prior Anesthetic Complications Alcohol Use: none Drug use: none Medications and Allergies Lisinopril [Zestril] 10 mg PO DAILY 09/27/18 [History] Allergy/AdvReac Type Severity Reaction Status Date / Time No Known Allergies Allergy Verified 09/28/18 15:29 - Meds/Allergy Pre-op Review Medications Reviewed: Yes Allergies Reviewed: Yes Beta Blockers on Current Med List: No Anesthesia Results - Labs 09/28/18 05:39 09/28/18 05:39 - Imaging EKG: report reviewed () Additional studies: ECHO 2014 EF 55% , no pulm htn Anesthesia Exam Vital Signs/O2 Sat/Glucose, Most Current Temp Pulse Resp BP Pulse Ox 09/28/18 16:07 98.7 F 92 14 123/81 97 Height: 5'0 Weight: 166 lbs NPO (# of Hours): MN Pain Scale: 0 - HEENT Pupil (Motor): Pupils equal, EOMI Mallampati: II Teeth: Normal Oral Opening: Less than or equal to 3 - [employer] LOC: Oriented [employer] Motor: Normal RUE, Normal LUE, Normal RLE, Normal LLE, Normal Face [employer] Sensory: Normal: RUE, LUE, RLE, LLE, Face - Cardiac Rhythm: Regular Murmur: None JVD: No Carotid Bruit: No - Pulmonary Breath Sounds: bilateral Clear Respiratory Effort: Symmetrical Anesthesia Assess/Plan ASA Score: 3 (HTN Neurological Deficit LE) Level of consciousness: Cooperative, Oriented Anesthetic Plan: General Autologous Blood: No Monitoring Plan: Standard Monitors Recovery Plan: PACU (Discussed GA, agrees to proceed)
[2018-09-28] MEDS ORDERED: Lidocaine -MPF 2% 2 ML VIAL ONE (18:00)
[2018-09-28] MEDS ORDERED: *HR* FentaNYL (PF) 100 MCG/2 ML VIAL ONE (18:00)
[2018-09-28] MEDS ORDERED: *HR* Propofol 200 MG/20 ML VIAL IVP ONE (18:00)
[2018-09-28] MEDS ORDERED: Dexamethasone 4 MG/ML VIAL ONE (18:34)
[2018-09-28] MEDS ORDERED: Ondansetron 4 MG/2 ML VIAL ONE (18:34)
--- NOTE | 2018-09-28 18:36 | Operative Note ---
Date of procedure: 09/28/18 Pre-op diagnosis: Right ureteral stone Post-op diagnosis: same Procedure: Cystoscopy, right ureteral stent placement Implants: 4.8-Indian by 24 cm double-J stent Complications: None Anesthesia: GETA Surgeon: Demetris Payton Was there an administrative sales assistant present: No Estimated blood loss (cc): 1 Specimen: none Condition: stable Disposition: PACU Procedure in Detail: Indications: Mr. Smiley is a 33-year-old male who has a history of nephrolithiasis. He had a CT which showed a right proximal ureteral stone. He elected to undergo a cystoscopy and right ureteral stent placement. He was aware of the risks of the procedure including but not limited to bleeding, infection, injury to other structures, need for further procedures, stent irritation, need for nephrostomy tube, need for open repair, risks otherwise unforeseen, and the risk of anesthesia. He is willing to proceed. Procedure in Detail: After informed consent was obtained the patient was brought back to the operating room and placed in supine position. A time out was performed. General anesthesia was administered and an LMA was placed. He was then placed in the lithotomy position. He was prepped and draped in the usual sterile fashion. Cystoscopy was performed. The anterior urethra was normal. There was no evidence of bladder tumors. The ureteral orifices were in the normal orthotopic position. There was no duplication of the ureteral orifices. The glide wire was placed in the right ureteral orifice. The wire was then brought up into the kidney under fluoroscopic guidance. A 4.8 Indian by 24cm JJ stent was then placed. The dangle strings were removed. The bladder was drained. The patient was then awakened from general anesthesia and brought to recovery room in good condition. All sponge, needle, and instrument counts were correct.
--- NOTE | 2018-09-28 19:47 | Anesthesia Evaluation Post Op ---
Date of Encounter: 09/28/18 Time of Encounter: 19:20 - Vital Signs Vital Signs: Vital Signs/O2 Sat/Glucose, Most Current Temp Pulse Resp BP Pulse Ox 09/28/18 19:23 97.8 F 80 14 128/90 99 09/28/18 19:13 97.8 F 74 14 124/88 99 09/28/18 19:03 75 16 121/86 99 09/28/18 18:53 87 16 114/83 98 09/28/18 18:43 97.9 F 66 16 99/62 93 09/28/18 16:07 98.7 F 92 14 123/81 97 - Lungs Lungs: Clear Ascult./Percussion - Airway Airway: Non-obstructed - Cardiovascular Regular Rate - Mental Status Mental Status: Alert & Oriented, Answers Appropriately - Pain Pain Scale: 0 - Nausea Vomiting Nausea Vomiting: Not Present - Hydration Hydration: Ice chips - Discharge PostOp Status: Transfer Patient to floor
[2018-09-29] MEDS ORDERED: Ketorolac 30 MG/ML VIAL IVP PRN (01:12)
[2018-09-29] MEDS ORDERED: Ondansetron 4 MG/2 ML VIAL IVP PRN (01:12)
[2018-09-29] MEDS ORDERED: Naloxone 0.4 MG/ML INJ IVP PRN (01:12)
[2018-09-29 05:28] LABS: Basophils % 0.2 %; Eosinophils % 0.1 %; Hematocrit 43.8 % (37.5-50.1); Hemoglobin 14.7 g/dL (12.9-16.9); Immature Granulocytes % 0.4 % (0-4); Lymphocytes # 0.9 K/mcL (0.6-4.6); Lymphocytes % 10.1 %; Mean Corpuscular HGB Conc 33.6 g/dL (31.6-35.5); Mean Corpuscular Hemoglobin 30.9 pg (28.0-33.3); Mean Corpuscular Volume 92.2 fL (83.0-100.0); Monocytes # 0.4 K/mcL (0.0-1.3); Monocytes % 3.9 %; Neutrophils # 7.9 K/mcL (1.6-8.9); Platelet Count 279 K/mcL (140-400); Red Blood Count 4.75 M/mcL (4.19-5.50); Red Cell Distribution Width 12.2 % (11.5-14.5); Segmented Neutrophils % 85.3 %; White Blood Count 9.3 K/mcL (4.3-11.1)
[2018-09-29 05:45] LABS: BUN/Creatinine Ratio 16 (6-26); Blood Urea Nitrogen 16 mg/dL (6-20); Calcium 9.3 mg/dL (8.6-10.3); Carbon Dioxide 25 mEq/L (23-29); Chloride 104 mEq/L (98-107); Glucose 156 mg/dL (70-105); Osmolality,Calculated 292 (280-300); Potassium 4.3 mEq/L (3.5-5.1); Sodium 139 mEq/L (136-145); eGFR For African Americans > 60 (> 60); eGFR For Non-African Americans > 60 (> 60)
--- NOTE | 2018-09-29 07:53 | Urology Progress Note ---
Date of Encounter: 09/29/18 Time of Encounter: 07:52 - Assessment and Plan (1) Kidney stone on right side Current Visit: Yes Status: Acute Assessment and plan: Postoperative day #1 status post cystoscopy and right ureteral stent placement. 1. Okay to discharge home today. 2. We will arrange for right ureteroscopic stone extraction as an outpatient. 3. Consider course of oral antibiotic such as Omnicef or ciprofloxacin to e mpirically treat possible UTI. Urine culture is still pending. Progress Note Narrative: Postoperative day #1 status post cystoscopy and right ureteral stent placement. He is doing well. Urine is a cranberry color. No fevers or chills overnight. Objective Initial Vital Signs Temp Pulse Resp BP Pulse Ox 99.7 F H 140 16 128/74 93 09/27/18 17:30 09/27/18 17:30 09/27/18 17:30 09/27/18 17:30 09/27/18 17:30 - General physical appearance Present: well developed, well nourished, no distress - Respiratory Present: normal respiratory effort - Genitourinary Urine Appearance: Present: Hematuria (Cranberry color) - Labs 09/29/18 05:08 09/29/18 05:08 Diabetes panel 09/29/18 Range/Units 05:08 Sodium 139 (136-145) mEq/L Potassium 4.3 (3.5-5.1) mEq/L Chloride 104 (98-107) mEq/L Carbon Dioxide 25 (23-29) mEq/L BUN 16 (6-20) mg/dL Creatinine 0.99 (0.70-1.30) mg/dL Glucose 156 H (70-105) mg/dL Calcium 9.3 (8.6-10.3) mg/dL Calcium panel 09/29/18 Range/Units 05:08 Calcium 9.3 (8.6-10.3) mg/dL Pituitary panel 09/29/18 Range/Units 05:08 Sodium 139 (136-145) mEq/L Potassium 4.3 (3.5-5.1) mEq/L Chloride 104 (98-107) mEq/L Carbon Dioxide 25 (23-29) mEq/L BUN 16 (6-20) mg/dL Creatinine 0.99 (0.70-1.30) mg/dL Glucose 156 H (70-105) mg/dL Calcium 9.3 (8.6-10.3) mg/dL Adrenal panel 09/29/18 Range/Units 05:08 Sodium 139 (136-145) mEq/L Potassium 4.3 (3.5-5.1) mEq/L Chloride 104 (98-107) mEq/L Carbon Dioxide 25 (23-29) mEq/L BUN 16 (6-20) mg/dL Creatinine 0.99 (0.70-1.30) mg/dL Glucose 156 H (70-105) mg/dL Calcium 9.3 (8.6-10.3) mg/dL Consult Discharge Plan - Plan Referrals: Demetris Payton MD [Partnered Physician] - Susan Santos CNP [Primary Care Provider] -
--- NOTE | 2018-09-29 08:36 | Discharge Summary ---
<FolrenéeSupo A - Last Filed: 09/29/18 13:35> Orders not resulted at time of discharge: Pending orders 09/27/18 19:04 Culture,Blood [BC] Stat 09/28/18 XR KUB [XR] Routine Date of Encounter: 09/29/18 - Discharge Diagnosis (1) Flank pain Status: Acute (2) Kidney stone on right side Status: Acute (3) DVT prophylaxis Status: Acute (4) Hyperglycemia Status: Acute Hospital course: Mr. Smiley is a 33 year old male - Time Spent with Patient Total time spent providing and/or coordinating discharge services: - Discharge Medications Prescriptions: New Cefdinir [Omnicef] 300 mg PO BID 3 Days #6 capsule Continued Lisinopril [Zestril] 10 mg PO DAILY Home Medications: Lisinopril [Zestril] 10 mg PO DAILY 09/27/18 [History] Cefdinir [Omnicef] 300 mg PO BID 3 Days #6 capsule 09/29/18 [Rx] Allergies/Adverse Reactions: Allergy/AdvReac Type Severity Reaction Status Date / Time No Known Allergies Allergy Verified 09/28/18 15:29 Date of admission: 09/27/18 22:48 Primary care physician: Susan Santos CNP Consults: 09/27/18 21:46 Consult to Urology [CONS] Stat Consulting Provider: [facility] Reason for Consult: Kidney stone Dr. Payton Time Notified: 21:46 Call Completed: No 09/28/18 00:52 Consult to Nutrition [CONS] Routine Comment: Consulting Provider: NUTRITION Reason for Dietary Consult: MST Score Consult to Pastoral Services [CONS] Routine Comment: - Constitutional Vitals: Temp Pulse Resp BP Pulse Ox 98.3 F 96 16 138/85 96 09/29/18 10:22 09/29/18 10:22 09/29/18 10:22 09/29/18 10:22 09/29/18 10:22 - Patient Status Disposition: Home, Self-Care Condition: Good - Discharge Instructions Instructions: Urinary Tract Infection in Men (DC) Follow Up With: Demetris Payton MD [Partnered Physician] - (Office will call with date and time of appointment. Thank you) Susan Santos CNP [Primary Care Provider] - (Web request entered. Office will call with date and time of appointment. Thank you) - Attending Attestation I have seen and independently assessed this patient and I agree with discharge summary as documented Exam Gen. NAD CVS. S1 S2 WNL Resp. CTAB GI. Soft, NT, ND, +BS Plan Ureteral stone with hydronephrosis. Urology on board and performed cystoscopy and stent placement UTI. Complete course of cefdinir <PilarMorgan Ortiz - Last Filed: 09/29/18 17:59> - NOTES TO OUTPATIENT PROVIDER Notes to Outpatient Provider: 33-year-old male admitted for nephrolithiasis and hydronephrosis. Right ureteral stent was placed on 09/28/18. We will follow-up with urology for stone removal. Discharged on Omnicef 300 twice a day for 3 days, to complete 5 day course of antibiotics for UTI. Orders not resulted at time of discharge: Pending orders 09/27/18 19:04 Culture,Blood [BC] Stat 09/27/18 19:15 Culture,Urine [RM] Stat 09/28/18 XR KUB [XR] Routine Date of Encounter: 09/29/18 Time of Encounter: 08:35 - Discharge Diagnosis (1) Ureteral stone with hydronephrosis Priority: Primary Status: Acute (2) Urinary tract infection Priority: Primary Status: Acute Qualifiers: Urinary tract infection type: site unspecified Hematuria presence: with hematuria Qualified Code(s): N39.0 - Urinary tract infection, site not specified; R31.9 - Hematuria, unspecified (3) Kidney stone on right side Priority: Primary Status: Acute (4) Hyperglycemia Priority: Secondary Status: Chronic Hospital course: Mr. Smiley is a 33 year old male with past medical history of hypertension, developmental delay, and paraplegia. Presents with 5 mm right proximal ureteral stone and hydronephrosis. Patient was accompanied by his mother who is a reliable historian for his past medical history. Patient presented to emergency department with one-week history of right flank pain, nausea, and upper abdominal pain. Patient was initially evaluated one week ago by his primary care provider who ordered a KUB and initiated antibiotics. KUB was negative, in the ED CT of the abdomen and pelvis revealed 5-6 mm right ureteropelvic junction calculus and hydronephrosis. Patient was admitted for further urologic intervention. Urology was consulted. On second day of admission cystoscopy was performed, with successful placement of right ureteral stent. Patient tolerated procedure well. Patient was discharged with oral antibiotics to finish 5 day course of treatment for UTI. He will follow-up with urology outpatient for stone extraction. - Time Spent with Patient Total time spent providing and/or coordinating discharge services: Date of admission: 09/27/18 22:48 Primary care physician: Susan Santos CNP Consults: 09/27/18 21:46 Consult to Urology [CONS] Stat Consulting Provider: Thomas Bone Reason for Consult: Kidney stone Dr. Payton Time Notified: 21:46 Call Completed: No 09/28/18 00:52 Consult to Nutrition [CONS] Routine Comment: Consulting Provider: NUTRITION Reason for Dietary Consult: MST Score Consult to Pastoral Services [CONS] Routine Comment: Discharging clinician: Morgan Quezada Anticipated date of discharge: 09/29/18 - Constitutional Vitals: Temp Pulse Resp BP Pulse Ox 98.3 F 84 15 126/84 96 09/29/18 07:45 09/29/18 07:45 09/29/18 07:45 09/29/18 07:45 09/29/18 07:45 General appearance: Present: cooperative, A&O X 3, pleasant, no acute distress, answers questions appropriately Exam: Gen: Vitals noted. No acute distress. Eyes: anicteric sclerae, moist conjunctivae; no lid-lag; Pupils equal and reactive to light HENT: Atraumatic, normocephalic; oropharynx clear with moist mucous membranes and no mucosal ulcerations Neck: Trachea midline; supple, no thyromegaly or lymphadenopathy Cardiac: RRR, no murmurs, rubs or gallops, S1/S2 Pulmonary: CTA bilaterally, no wheezes, rales or rhonchi, equal chest expansion Abdomen: soft, nontender, no rigidity or guarding. No masses or hepatosplenomegaly MSK: ROM intact, no joint swelling noted Extremities: no BLE edema, nontender calf, no cyanosis or clubbing Skin: Normal temperature, turgor and texture; no rash, ulcers or subcutaneous nodules Neuro: Unable to move legs, fasciculations noted in R foot Psych: Appropriate mood and behavior. A&Ox3, moderate mental retardation - Patient Status Overall status at discharge: patient is back to baseline
[2018-09-29] MEDS ORDERED: cefTRIAXone 1,000 MG in Water for inj. (sterile) 10 ML IVP SCH (09:00)
[2018-09-29 10:23] VITALS: BP 138/85
== END 2018-09-29 13:14 | disposition home or self-care (01) ==
LOC: 3ANU 17:28 → EMEROOARM 17:28 → 3ANU 23:36
PROVIDERS: ADMIT Internal Medicine; ATTEND Internal Medicine